=== PATIENT | male | born 1970 | race Caucasian/White ===

== ENCOUNTER 2017-09-22 21:29 | Emergency (ER) | payer OTHER ==
[~2017-09-22] VITALS: Ht 182.9 cm; Wt 104.3 kg
[2017-09-22] MEDS ORDERED: HYDR25TA4 PO (22:23)
[2017-09-22] MEDS ORDERED: LEVO88TA5 PO (22:23)
[2017-09-22] MEDS: DOCUSATE SODIUM 100 MG CAPSULE PO ONE (22:40)
[2017-09-22] MEDS ORDERED: DOCUSATE SODIUM 100 MG CAPSULE PO ONE (22:41)
--- NOTE | 2017-09-22 22:51 | NUR ---
Patient discharged to home in stable conditon. Written and verbal after care instructions given. Patient verbalizes understanding of instructions.
[2017-09-22 23:53] VITALS: BP 154/96
== END 2017-09-22 23:49 | disposition left against medical advice (07) ==
LOC: ER 21:31
DX: H61.23 Impacted cerumen, bilateral (principal); E03.9 Hypothyroidism, unspecified; I10 Essential (primary) hypertension
CPT/HCPCS: A4663

== ENCOUNTER 2018-06-07 12:29 | Emergency (ER) | payer OTHER ==
[~2018-06-07] VITALS: Ht 182.9 cm; Wt 99.8 kg
[~2018-06-07 12:29] MED LIST: HYDR25TA4 PO; LEVO88TA5 PO
[2018-06-07] MEDS ORDERED: ATOR40TA PO (12:39)
[2018-06-07] MEDS ORDERED: LEVO100T10 PO (12:39)
[2018-06-07] MEDS ORDERED: LISI-603 PO (12:39)
[2018-06-07] MEDS ORDERED: IV NORMAL SALINE 1000 ML BAG IV ONE (12:45)
[2018-06-07] MEDS ORDERED: ONDANSETRON 4 MG/2 ML VIAL IV ONE (12:45)
[2018-06-07] MEDS ORDERED: MORPHINE SULFATE 2 MG/1 ML DISP.SYRIN IV ONE (12:45)
[2018-06-07] MEDS ORDERED: MORPHINE SULFATE 4 MG/1 ML DISP.SYRIN ONE (12:54)
[2018-06-07] MEDS ORDERED: ONDANSETRON 4 MG/2 ML VIAL ONE (12:54)
[2018-06-07 13:17] LABS: BASOPHILS # (AUTO) 0.1 K/uL (0.0-8.0); BASOPHILS % (AUTO) 1.3 % (0.0-2.0); EOSINOPHILS % (AUTO) 0.3 % (0.0-7.0); HEMATOCRIT 40.8 % (36.7-47.1); HEMOGLOBIN 14.3 g/dL (12.5-16.3); LYMPHOCYTES # (AUTO) 3.1 K/uL (20.0-40.0); LYMPHOCYTES % (AUTO) 33.5 % (20.5-51.5); MEAN CORPUSCULAR HEMOGLOBIN 32.4 uug (23.8-33.4); MEAN CORPUSCULAR HGB CONC 35 g/dL (32.5-36.3); MEAN CORPUSCULAR VOLUME 92.1 fL (73.0-96.2); MONOCYTES # (AUTO) 0.5 K/uL (2.0-10.0); MONOCYTES % (AUTO) 5.6 % (0.0-11.0); NEUTROPHILS # (AUTO) 5.6 K/uL (1.8-8.9); NEUTROPHILS % (AUTO) 59.3 % (38.5-71.5); PLATELET COUNT (AUTO) 268 K/uL (152-348); RED BLOOD CELL COUNT(AUTO) 4.43 MIL/uL (4.06-5.63); WHITE BLOOD COUNT (AUTO) 9.4 K/uL (3.6-10.2)
[2018-06-07 13:30] LABS: BILIRUBIN,DIRECT 0.2 mg/dL (0.0-0.2); BILIRUBIN,TOTAL 0.7 mg/dL (0.2-1.0); CREATININE 1.1 mg/dL (0.6-1.3); POTASSIUM 3.6 mmol/L (3.5-5.1)
--- NOTE | 2018-06-07 15:00 | NUR ---
Still for urine sample, notified. Copies of the labs tests & U/S were provided to patient.
--- NOTE | 2018-06-07 15:01 | NUR ---
Patient discharged to home in stable conditon & brisk steady gait. Written and verbal after care instructions given to patient and spouse (who speaks fluent [place]). Patient and family verbalized understanding of instructions.
== END 2018-06-07 15:14 | disposition home or self-care (01) ==
LOC: ER 12:30
DX: K80.20 Calculus of gallbladder without cholecystitis without obstruction (principal); K76.0 Fatty (change of) liver, not elsewhere classified; N20.0 Calculus of kidney; I10 Essential (primary) hypertension; E78.00 Pure hypercholesterolemia, unspecified; E03.9 Hypothyroidism, unspecified
CPT/HCPCS: 36415; 71045; 76700; 80048; 80076; 83690; 84484; 85025; 85730; 93005; 96374; 99285; J2405; 70030-TC; A4663; J2270; J7030